=== PATIENT | male | born 1960 | race Caucasian/White ===

== ENCOUNTER 2017-04-04 11:01 | Emergency (ER) | payer BC, OTHER ==
[~2017-04-04] VITALS: Ht 185.4 cm; Wt 86.1 kg
[~2017-04-04 11:01] MED LIST: ASPI81TA28 PO; FEXO1TAB46 PO; FLUT0.0529 NAE; LISI20TA3 PO; METO50TA17 PO; PRLSR20 PO; PRVC/40 PO
[2017-04-04 11:06] VITALS: TEMP 37; Ht 185.4 cm; Wt 86.1 kg
[2017-04-04 11:50] LABS: BASO % 0.3 %; BASO ABS # 0.02 K/uL (0-0.2); COMPLETE YES; EOS % 2.3 %; HEMATOCRIT 43.5 % (42-52); IG% 0.3 %; LYMPH % 27.3 %; LYMPH ABS # 1.63 K/uL (1.2-3.4); MEAN CELL VOLUME 86.8 fL (80-100); MEAN CORPUSCULAR HEMOGLOBIN 30.3 pg (25-34); MEAN CORPUSCULAR HGB CONC 34.9 g/dl (32-36); MEAN PLATELET VOLUME 11.6 fL (7.4-10.4); MONO % 7.7 %; NEUT % 62.1 %; PLATELET COUNT 193 K/uL (130-400); RED BLOOD COUNT 5.01 M/uL (4.7-6.1); WHITE BLOOD COUNT 5.97 K/uL (4.8-10.8)
[2017-04-04 11:57] LABS: PROTHROMBIN TIME (PATIENT) 10.9 SECONDS (9.0-12.0)
[2017-04-04] MEDS ORDERED: CLBPO15 TOP (11:57)
[2017-04-04] MEDS ORDERED: METO50TA16 PO (11:57)
[2017-04-04] MEDS ORDERED: OMEP40CA41 PO (11:57)
[2017-04-04] MEDS ORDERED: SODIUM CHLORIDE 0.9% 1000ML 1,000 ML IV STA (12:02)
[2017-04-04] MEDS ORDERED: KETOROLAC TROMETHAMINE 30 MG/ML VIAL IV STA (12:02)
[2017-04-04 12:05] LABS: URINE APPEARANCE CLEAR (CLEAR); URINE BILIRUBIN NEG (NEG); URINE COLOR YELLOW; URINE EPITHELIAL CELL AUTO 0-5 /lpf (0-5); URINE NITRITE NEG (NEG); URINE SPECIFIC GRAVITY 1.017 (1.000-1.030); UROBILINOGEN NEG (NEG); ZZUR CULT IF INDIC CLEAN CATCH NO
[2017-04-04 12:06] LABS: MANUAL MICROSCOPIC REQUIRED? NO; REVIEW REQ? NO
[2017-04-04 12:07] LABS: BUN/CREATININE RATIO 11.1 (10-20); CREATININE 1.09 mg/dl (0.60-1.40); POTASSIUM 3.6 mmol/L (3.5-5.1)
--- NOTE | 2017-04-04 12:07 | EMERGENCY ROOM VISIT NOTE ---
History Report prepared by Gabriel: Raegan Black Under the Supervision of: Dr. Phil Borja M.D. First contact with patient: 11:48 Chief Complaint: HYPERTENSION Stated Complaint: HIGH BLOOD PRESSURE, BACK PAIN, DIGESTIVE TROUBLE History of Present Illness The patient is a 57 year old male who presents to the Emergency Room with complaints of persistent hypertension over the past two days. He currently rates his discomfort as a 5/10 in severity. The patient reports that he has a history of chronic back and abdominal pain. He states that he has a history of diverticulosis and chronic back pain. The patient states that he stopped by two urgent cares in [place] yesterday, noting that for the first one was for worsened chronic pain. He states that while there he was found to have a blood pressure of 190/95 mmHg. The patient states that at the second Urgent Care he was found to have a blood pressure of 210/110 mmHg. He states that last evening he was evaluated by a cardiac nurse and was found to have a blood pressure of 200/100 mmHg. The patient states that she instructed him to double his hypertension medications. He states that this morning he was found to have a blood pressure of 204/100 mmHg and decided to come to the emergency department for further evaluation and treatment. The patient states that over the past few days he has experienced burning with urination but denies any hematuria. He reports diarrhea. The patient reports chills, but denies any fever. He denies any nausea or vomiting. The patient additionally reports dizziness. Source of History: patient Onset: past two days Position: other (global) Symptom Intensity: 5/10 Quality: other (hypertension) Timing: other (persistent) Associated Symptoms: + chills, + diarrhea, + urinary symptoms, No fevers, No nausea, No vomiting Note: Associated symptoms: dizziness Review of Systems See HPI for pertinent positives and negatives. A total of ten systems were reviewed and were otherwise negative. Past Medical & Surgical Medical Problems: (1) Hypertension Family History FH: heart disease FATHER Social History Smoking Status: Never Smoker Drug Use: none Marital Status: Housing Status: lives with family Occupation Status: employed Current/Historical Medications Scheduled Aspirin (Aspirin Ec), 81 MG PO DAILY Clobetasol Propionate (Clobetasol Propionate), 1 APPLN TOP BID Lisinopril (Prinivil), 20 MG PO BID Metoprolol Tartrate (Lopressor) (Lopressor), 50 MG PO BID Omeprazole (Prilosec), 40 MG PO DAILY Allergies Coded Allergies: Dairy (Verified Allergy, Intermediate, lactose intolerant, 04/04/17) NUTS (Verified Adverse Reaction, Intermediate, GI SYMPTOMS, 04/04/17) patient states he cannot digest nuts and gets extreme abdominal pain Physical Exam Vital Signs Date Time Temp Pulse Resp B/P (MAP) Pulse Ox O2 Delivery O2 Flow Rate FiO2 04/04/17 15:46 62 20 162/101 97 Room Air 04/04/17 15:01 148/89 04/04/17 14:56 59 18 04/04/17 14:41 61 14 04/04/17 14:31 134/90 04/04/17 14:26 62 23 04/04/17 14:11 62 18 04/04/17 14:01 150/93 04/04/17 13:56 65 23 04/04/17 13:41 61 17 04/04/17 13:31 158/95 04/04/17 13:26 64 14 04/04/17 13:21 64 15 04/04/17 13:06 64 21 04/04/17 13:01 154/90 04/04/17 12:51 65 17 04/04/17 12:36 65 22 04/04/17 12:31 64 19 161/100 98 04/04/17 12:29 154/105 04/04/17 12:16 69 14 97 04/04/17 12:01 71 20 99 04/04/17 12:01 72 04/04/17 11:06 37.0 73 17 210/101 97 Room Air Physical Exam GENERAL: Awake, alert, fatigued but otherwise well-appearing, in no distress HENT: Normocephalic, atraumatic. Dry mucous membranes. EYES: Normal conjunctiva. Sclera non-icteric. NECK: Supple. No nuchal rigidity. FROM. No JVD. RESPIRATORY: Clear to auscultation. CARDIAC: Regular rate, normal rhythm. Extremities warm and well perfused. Pulses equal. ABDOMEN: Soft, non-distended. Mild generalized abdominal discomfort, but no discrete tenderness, no peritoneal signs. No rebound or guarding. No masses. RECTAL: Deferred. MUSCULOSKELETAL: Chest examination reveals no tenderness. The back is symmetrical on inspection without obvious abnormality. There is no CVA tenderness to palpation. No joint edema. Mild lumbar discomfort, but no discrete tenderness, LOWER EXTREMITIES: Calves are equal size bilaterally and non-tender. No edema. No discoloration. FROM without ttp. NEURO: Normal sensorium. No sensory or motor deficits noted. Distal motor sensory intact. SKIN: No rash or jaundice noted. Medical Decision & Procedures ER Provider Diagnostic Interpretation: X-ray: Per my interpretation, radiologist review. CHEST ONE VIEW PORTABLE CLINICAL HISTORY: sob dyspnea COMPARISON STUDY: 04/30/2013 FINDINGS: The bones soft tissues and hemidiaphragms are normal. The cardiomediastinal silhouette is normal. The lungs are clear. The pulmonary vasculature is normal. IMPRESSION: Negative chest. The above report was generated using voice recognition software. It may contain grammatical, syntax or spelling errors. Electronically signed by: Montrell Zhou M.D. 04/04/2017 12:33 PM Dictated Date/Time: 04/04/2017 12:33 PM Laboratory Results 04/04/17 11:20 Red Blood Count 5.01, Mean Corpuscular Volume 86.8, Mean Corpuscular Hemoglobin 30.3, Mean Corpuscular Hemoglobin Concent 34.9, Mean Platelet Volume 11.6, Neutrophils (%) (Auto) 62.1, Lymphocytes (%) (Auto) 27.3, Monocytes (%) (Auto) 7.7, Eosinophils (%) (Auto) 2.3, Basophils (%) (Auto) 0.3, Neutrophils # (Auto) 3.70, Lymphocytes # (Auto) 1.63, Monocytes # (Auto) 0.46, Eosinophils # (Auto) 0.14, Basophils # (Auto) 0.02 04/04/17 11:20 Test 04/04/17 11:20 04/04/17 11:40 04/04/17 12:02 White Blood Count 5.97 K/uL (4.8-10.8) Red Blood Count 5.01 M/uL (4.7-6.1) Hemoglobin 15.2 g/dL (14.0-18.0) Hematocrit 43.5 % (42-52) Mean Corpuscular Volume 86.8 fL (80-100) Mean Corpuscular Hemoglobin 30.3 pg (25-34) Mean Corpuscular Hemoglobin Concent 34.9 g/dl (32-36) Platelet Count 193 K/uL (130-400) Mean Platelet Volume 11.6 fL (7.4-10.4) Neutrophils (%) (Auto) 62.1 % Lymphocytes (%) (Auto) 27.3 % Monocytes (%) (Auto) 7.7 % Eosinophils (%) (Auto) 2.3 % Basophils (%) (Auto) 0.3 % Neutrophils # (Auto) 3.70 K/uL (1.4-6.5) Lymphocytes # (Auto) 1.63 K/uL (1.2-3.4) Monocytes # (Auto) 0.46 K/uL (0.11-0.59) Eosinophils # (Auto) 0.14 K/uL (0-0.5) Basophils # (Auto) 0.02 K/uL (0-0.2) RDW Standard Deviation 41.7 fL (36.4-46.3) RDW Coefficient of Variation 13.0 % (11.5-14.5) Immature Granulocyte % (Auto) 0.3 % Immature Granulocyte # (Auto) 0.02 K/uL (0.00-0.02) Erythrocyte Sedimentation Rate 11 mm/hr (0-14) Prothrombin Time 10.9 SECONDS (9.0-12.0) Prothromb Time International Ratio 1.0 (0.9-1.1) Activated Partial Thromboplast Time 26.6 SECONDS (21.0-31.0) Partial Thromboplastin Ratio 1.0 Anion Gap 5.0 mmol/L (3-11) Est Creatinine Clear Calc Drug Dose 85.5 ml/min Estimated GFR () 87.5 Estimated GFR (Non- 75.5 BUN/Creatinine Ratio 11.1 (10-20) Calcium Level 9.0 mg/dl (8.5-10.1) Total Bilirubin 1.3 mg/dl (0.2-1) Aspartate Amino Transf (AST/SGOT) 18 U/L (15-37) Alanine Aminotransferase (ALT/SGPT) 28 U/L (12-78) Alkaline Phosphatase 66 U/L (45-117) Total Protein 7.9 gm/dl (6.4-8.2) Albumin 4.2 gm/dl (3.4-5.0) Globulin 3.6 gm/dl (2.5-4.0) Albumin/Globulin Ratio 1.2 (0.9-2) Urine Color YELLOW Urine Appearance CLEAR (CLEAR) Urine pH 6.0 (4.5-7.5) Urine Specific University 1.017 (1.000-1.030) Urine Protein NEG (NEG) Urine Glucose (UA) NEG (NEG) Urine Ketones NEG (NEG) Urine Occult Blood NEG (NEG) Urine Nitrite NEG (NEG) Urine Bilirubin NEG (NEG) Urine Urobilinogen NEG (NEG) Urine Leukocyte Esterase NEG (NEG) Urine WBC (Auto) 1-5 /hpf (0-5) Urine RBC (Auto) 0-4 /hpf (0-4) Urine Hyaline Casts (Auto) 0 /lpf (0-5) Urine Epithelial Cells (Auto) 0-5 /lpf (0-5) Urine Bacteria (Auto) NEG (NEG) Phosphorus Level 2.4 mg/dl (2.5-4.9) Magnesium Level 2.1 mg/dl (1.8-2.4) Total Creatine Kinase 204 U/L (39-308) Troponin I < 0.015 ng/ml (0-0.045) C-Reactive Protein < 0.29 mg/dl (0-0.29) Laboratory results reviewed by me Medications Administered Medications (Trade) Dose Ordered Sig/Komal Route Start Time Stop Time Status Last Admin Dose Admin Sodium Chloride 1,000 ml @ 999 mls/hr Q1H1M STAT IV 04/04/17 12:02 04/04/17 13:02 DC 04/04/17 12:30 999 MLS/HR Ketorolac Tromethamine (Toradol Inj) 30 mg NOW STAT IV 04/04/17 12:02 04/04/17 12:11 DC 04/04/17 12:31 30 MG ECG Indication: other (hypertension) Rate (beats per minute): 69 Rhythm: normal sinus Findings: no acute ischemic change, other (normal axis) ED Course 1158: The patient was evaluated in room A9B. A complete history and physical exam was performed. 1202: Ordered Toradol Inj 30 mg IV, Sodium Chloride 1000 ml @ 999 mls/hr IV. Medical Decision I reviewed the patient's past medical history, medications, and the nursing notes as described above. The patient's presentation and history were concerning for Dehydration, electrolyte abnormality, pneumonia, bronchitis, UTI, prostatitis, diverticulitis , ACS. The patient is a 57 y/o gentleman with a pmhx of HTN and chronic back, abdominal , and hip pain who presents to the emergency department with flare of his chronic pain with associated hypertension per HPI. On arrival the patient is relatively well-appearing, in NAD, hypertensive to sbp 200s/100s but otherwise VSS. Appears clinically dry on exam. Mild lumbar and generalized abdominal discomfort but no discrete ttp. Labs unremarkable including wbc and trop wnl. EKG unremarkable. CXR negative. Patient feeling improved after IVF and toradol and BP improved to SBP 140s. Elevated BP likely multifactorial including mild dehydration and patient's chronic pain. Given reassuring w/u no indication for emergent w/u at this time. Findings and plan for follow-up reviewed with patient. Patient agreeable and d/c'd per discharge instructions. Medication Reconcilliation Current Medication List: was personally reviewed by me Impression Primary Impression: Back pain Additional Impressions: Abdominal pain Hip pain, bilateral Scribe Attestation The scribe's documentation has been prepared under my direction and personally reviewed by me in its entirety. I confirm that the note above accurately reflects all work, treatment, procedures, and medical decision making performed by me. Departure Information Dispostion Home / Self-Care Referrals Meryl Jefferson M.D. (PCP) Patient Instructions Abdominal Pain - [facility], ED Neck Back Pain General, My [facility], Replacement Hip Manage Pain Additional Instructions Please follow up with your primary care physician in the next week for re- evaluation and to discuss management of your blood pressure. Otherwise, your exam, EKG, chest xray, and lab results did not show signs of an emergent condition at this time. Return to the emergency department for worsening symptoms as described in the accompanying instructions. Problem Qualifiers
[2017-04-04 12:09] LABS: ALB/GLOB RATIO 1.2 (0.9-2)
--- NOTE | 2017-04-04 12:34 | DIAGNOSTIC IMAGING REPORT ---
CHEST ONE VIEW PORTABLE CLINICAL HISTORY: sob dyspnea COMPARISON STUDY: 04/30/2013 FINDINGS: The bones soft tissues and hemidiaphragms are normal. The cardiomediastinal silhouette is normal. The lungs are clear. The pulmonary vasculature is normal. IMPRESSION: Negative chest. The above report was generated using voice recognition software. It may contain grammatical, syntax or spelling errors. Electronically signed by: Montrell Zhou M.D. 04/04/2017 12:33 PM Dictated Date/Time: 04/04/2017 12:33 PM
[2017-04-04 13:32] LABS: C-REACTIVE PROTEIN < 0.29 mg/dl (0-0.29); MAGNESIUM 2.1 mg/dl (1.8-2.4); PHOSPHORUS 2.4 mg/dl (2.5-4.9)
[2017-04-04 15:46] VITALS: BP 162/101; PULSE 62; O2SAT 97
[2017-04-16] MEDS ORDERED: BLOOD PRESSURE MED PO (15:30)
[2017-04-16] MEDS ORDERED: MULT-506 PO (15:31)
[2017-04-18] MEDS ORDERED: AMLO-110 PO (10:54)
== END 2017-04-04 15:56 | disposition home or self-care (01) ==
LOC: C.EDB 11:03 → C.EDA 15:56
DX: M54.9 Dorsalgia, unspecified (principal); R10.9 Unspecified abdominal pain; M25.551 Pain in right hip; M25.552 Pain in left hip; Z79.82 Long term (current) use of aspirin; I10 Essential (primary) hypertension; Z82.49 Family history of ischemic heart disease and other diseases of the circulatory system

== ENCOUNTER → 2017-04-18 | Day surgery (SDC) | payer OTHER ==
[2017-04-16 15:31] VITALS: Ht 185.4 cm; Wt 95.9 kg
[~2017-04-18] VITALS: Ht 185.4 cm; Wt 95.9 kg
[~2017-04-18] MED LIST changes: +AMLO-110 PO; +BLOOD PRESSURE MED PO; +CLBPO15 TOP; -FEXO1TAB46 PO; -FLUT0.0529 NAE; +LIDOCAINE HCL 2% 2 ML VIAL (20MG/ML) ONE; +METO50TA16 PO; -METO50TA17 PO; +MULT-506 PO; +OMEP40CA41 PO; -PRLSR20 PO; +PROPOFOL IV EMULSION 10 MG/ML 20 ML VIAL IV ONE; -PRVC/40 PO; +SODIUM CHLORIDE 0.9% 500ML 500 ML IV ONE
[2017-04-18 11:00] VITALS: TEMP 36.6
--- NOTE | 2017-04-18 11:04 | Endo History and Physical ---
History & Physical Date of Service: Apr 18, 2017. Chief Complaint: Family history Colon Cancer, Personal history of polyps Referring Physician: Meryl Jefferson History of Present Illness 57 yo presenting for colonoscopy for evaluation of colon polyp history as well as family history of colon ca Past Medical History Hypertension, Other Past Surgical History Hx Cardiac Surgery: Yes (HEART CATH, NO STENTS) Hx Internal Defibrillator: No Hx Pacemaker: No Hx Abdominal Surgery: Yes (R[facility]INSON) Hx of Implantable Prosthesis: No Hx Post-Op Nausea and Vomiting: No Hx Cancer Surgery: No Hx Thoracic Surgery: No Hx Orthopedic: Yes (LT/RT ELIO) Hx Urinary Tract Surgery: Yes (KIDNEY STONE REMOVAL, TURP) Family History Colon CA Social History Smoking Status: Never Smoker Hx Substance Use: No Hx Alcohol Use: No Allergies Coded Allergies: Dairy (Verified Allergy, Intermediate, lactose intolerant, 04/18/17) NO KNOWN DRUG ALLERGIES (Verified Allergy, Unknown, ., 04/18/17) NUTS (Verified Adverse Reaction, Intermediate, GI SYMPTOMS, 04/18/17) patient states he cannot digest nuts and gets extreme abdominal pain Current Medications Reported Home Medications Medications Dose Route/Sig Max Daily Dose Days Date Category Norvasc (Amlodipine Besylate) 5 Mg Tab 5 Mg PO DAILY 04/18/17 Reported Multivitamin (Multivitamins) Tab 1 Tab PO DAILY 04/16/17 Reported Lopressor (Metoprolol Tartrate) 50 Mg Tab 50 Mg PO BID 04/04/17 Reported Clobetasol Propionate 45 Appln/15 Gm Oint 1 Appln TOP BID PRN 04/04/17 Reported Prilosec (Omeprazole) 40 Mg Cap 40 Mg PO QAM 04/04/17 Reported Aspirin Ec (Aspirin) 81 Mg Tab 81 Mg PO QAM 07/28/13 Reported Prinivil (Lisinopril) 20 Mg Tab 20 Mg PO BID 04/30/13 Reported Vital Signs Weight (Kilograms): 95.91 Height (Feet): 6 Height (Inches): 1 Physical Exam General Appearance: WD/WN, no apparent distress Respiratory/Chest: Respiratory effort: no dyspnea Auscultation: breath sounds normal, CTA except as noted, no wheezing Cardiovascular: Apical Impulse: not displaced Heart Auscultation: RRR, normal S1, normal S2 Abdomen: Bowel Sounds: normal Inspection & Palpation: soft, no tenderness, guarding & rebound Assessment and Plan 57 yo presenting for colonoscopy for evaluation of history of colon polyps and family hx of colon ca
--- NOTE | 2017-04-18 12:03 | GI REPORT ---
Procedure Date: 04/18/2017 11:04 AM Procedure: Colonoscopy Indications: High risk colon cancer surveillance: Personal history of colonic polyps Medicines: General Anesthesia Complications: No immediate complications. Estimated blood loss: None. Estimated Blood Loss: Estimated blood loss: none. Procedure: Pre-Anesthesia Assessment: - Pre-Anesthesia Assessment: - Prior to the procedure, a History and Physical was performed, and patient medications, allergies and sensitivities were reviewed. The patient's tolerance of previous anesthesia was reviewed. Please see [employer] for complete details. - The risks and benefits of the procedure and the sedation options and risks were discussed with the patient. All questions were answered and informed consent was obtained. - Patient identification and proposed procedure were verified prior to the procedure by the physician and the nurse. The procedure was verified in the pre-procedure area in the procedure room. After obtaining informed consent, the endoscope was passed carefully and meticuously under direct vision and only advanced when the lumen was clearly identified, C02 insuflation was utilized throughout the entirity of the procedure. Throughout the procedure, the patient's blood pressure, pulse, and oxygen saturations were monitored continuously. After I obtained informed consent, the scope was passed under direct vision. Throughout the procedure, the patient's blood pressure, pulse, and oxygen saturations were monitored continuously. The Scope was introduced through the anus and advanced to the cecum, identified by appendiceal orifice and ileocecal valve. The colonoscopy was performed without difficulty. The patient tolerated the procedure well. The quality of the bowel preparation was good. Findings: A 4 mm polyp was found in the transverse colon. The polyp was sessile. The polyp was removed with a jumbo cold forceps. Resection and retrieval were complete. The terminal ileum appeared normal. Multiple small-mouthed diverticula were found in the sigmoid colon. Internal hemorrhoids were found during retroflexion. The exam was otherwise without abnormality on direct and retroflexion views. Impression: - One 4 mm polyp in the transverse colon, removed with a jumbo cold forceps. Resected and retrieved. - The examined portion of the ileum was normal. - Diverticulosis in the sigmoid colon. - Internal hemorrhoids. - The examination was otherwise normal on direct and retroflexion views. Recommendation: - Discharge patient to home (with escort). - Repeat colonoscopy in 5 years for surveillance based on pathology results. - Return to referring physician as previously scheduled. Phuc Morgan MD 04/18/2017 12:02:59 PM This report has been signed electronically. Note Initiated On: 04/18/2017 11:04 AM I attest to the content of the Intraoperative Record and orders documented therein, exceptions below
--- NOTE | 2017-04-18 12:18 | Discharge Instructions ---
Endoscopy Patient Instructions Date / Procedure(s) Performed Apr 18, 2017. Colonoscopy Allergy Information Coded Allergies: Dairy (Verified Allergy, Intermediate, lactose intolerant, 04/18/17) NO KNOWN DRUG ALLERGIES (Verified Allergy, Unknown, ., 04/18/17) NUTS (Verified Adverse Reaction, Intermediate, GI SYMPTOMS, 04/18/17) patient states he cannot digest nuts and gets extreme abdominal pain Discharge Date / Findings Apr 18, 2017. Findings: A 4 mm polyp was found in the transverse colon. The polyp was sessile. The polyp was removed with a jumbo cold forceps. Resection and retrieval were complete. The terminal ileum appeared normal. Multiple small-mouthed diverticula were found in the sigmoid colon. Internal hemorrhoids were found during retroflexion. The exam was otherwise without abnormality on direct and retroflexion views. Recommendation: - Discharge patient to home (with escort). - Repeat colonoscopy in 5 years for surveillance based on pathology results. - Return to referring physician. Medication Instructions Stopped Medication(s): Aspirin stopped 04/11/17 Provider Instructions Activity Restrictions - No exercising or heavy lifting for 24 hours. - Do not drink alcohol the day of the procedure. - Do not drive a car or operate machinery until the day after the procedure. - Do not make any important decisions or sign important papers in 24 hours after the procedure. Following Day: - Return to full activity which may include returning to work/school. Diet Start your diet with liquids and light foods (jello, soup, juice, toast). Then eat your usual diet if not nauseated. Treatment For Common After Affects For mild abdominal pain, bloating, or excessive gas: - Rest - Eat lightly - Lie on right side Follow-Up Information Follow-up with Meryl Jefferson as scheduled Anesthesia Information What You Should Know You have had a procedure that required some medicine to reduce anxiety and discomfort. This treatment is called moderate sedation. After receiving the treatment, you may be sleepy, but you will be able to breathe on your own. The effects of the treatment may last for several hours. Follow these instructions along with Activity/Diet recommendations noted above: * Do NOT do anything where dizziness or clumsiness would be dangerous. * Rest quietly at home today, then you can be up and about tomorrow. * Have a responsible person stay with you the rest of today. * You may have had an I.V. today. If so, you may take the dressing off later today. Recommendations Call your doctor if: * Trouble breathing * Continuous vomiting for more than 24 hours * Temperature above 101 degrees * Severe abdominal pain or bloating * Pain not relieved by pain medicine ordered * There is increased drainage or redness from any incision * A large amount of rectal bleeding greater than 2-3 tablespoons. (If you had a polyp/s removed or have hemorrhoids, a small amount of blood - from the rectum is to be expected.) * You have any unanswered questions or concerns. IN THE EVENT OF A SERIOUS EMERGENCY, GO TO THE NEAREST EMERGENCY ROOM Your discharge instructions were prepared by provider Phuc Morgan. Patient Instructions Signature Page Timoteo Dinh Patient (or Guardian) Signature/Date: I have read and understand the instructions given to me by my caregivers. Caregiver/RN/Doctor Signature/Date: The above-named patient and/or guardian has received patient instructions on this date. + Original Patient Signature Page (only) stays with chart. Please make copy for patient.
--- NOTE | 2017-04-18 12:22 | Anesthesiology Progress Note ---
Anesthesia Post Op Note Date & Time Apr 18, 2017 at 12:22 Vital Signs Pain Intensity: 0 Vital Signs Past 12 Hours Date Time Temp Pulse Resp B/P (MAP) Pulse Ox O2 Delivery O2 Flow Rate FiO2 04/18/17 12:01 64 16 106/59 (75) 96 Room Air 04/18/17 11:00 36.6 69 16 159/100 (119) 98 Room Air Notes Mental Status: alert / awake / arousable, participated in evaluation Pt Amnestic to Procedure: Yes Nausea / Vomiting: adequately controlled Pain: adequately controlled Airway Patency, RR, SpO2: stable & adequate BP & HR: stable & adequate Hydration State: stable & adequate Anesthetic Complications: no major complications apparent
[2017-04-18 12:31] VITALS: BP 146/85; PULSE 66; O2SAT 99
== END | disposition home or self-care (01) ==
LOC: C.GI 10:24
PROVIDERS: ATTEND Internal Medicine
DX: Z12.11 Encounter for screening for malignant neoplasm of colon (principal); D12.3 Benign neoplasm of transverse colon; K57.30 Diverticulosis of large intestine without perforation or abscess without bleeding; K64.8 Other hemorrhoids; Z86.010 Personal history of colon polyps; Z80.0 Family history of malignant neoplasm of digestive organs; I10 Essential (primary) hypertension; Z79.82 Long term (current) use of aspirin; Z79.899 Other long term (current) drug therapy

== ENCOUNTER → 2017-09-04 | Outpatient (CLI) | payer OTHER ==
[~2017-09-04] MED LIST changes: -BLOOD PRESSURE MED PO; -LIDOCAINE HCL 2% 2 ML VIAL (20MG/ML) ONE; -PROPOFOL IV EMULSION 10 MG/ML 20 ML VIAL IV ONE; -SODIUM CHLORIDE 0.9% 500ML 500 ML IV ONE
[2017-09-04 13:37] LABS: ALBUMIN 4.1 gm/dl (3.4-5.0); ALT/SGPT 60 U/L (12-78); BLOOD UREA NITROGEN 15 mg/dl (7-18); CALCIUM 9.3 mg/dl (8.5-10.1); CARBON DIOXIDE 27 mmol/L (21-32); CHOLESTEROL 147 mg/dl (0-200); CREATININE 1.18 mg/dl (0.60-1.40); GLUCOSE 117 mg/dl (70-99); POTASSIUM 4.2 mmol/L (3.5-5.1); SODIUM 137 mmol/L (136-145)
[2017-09-04 13:40] LABS: ALKALINE PHOSPHATASE 77 U/L (45-117); AST/SGOT 36 U/L (15-37); LDL CHOLESTEROL CALCULATED 93 mg/dl; TOTAL PROTEIN 7.7 gm/dl (6.4-8.2)
== END | disposition home or self-care (01) ==
LOC: C.LABPVFM 07:53
PROVIDERS: ATTEND Internal Medicine
DX: E78.5 Hyperlipidemia, unspecified (principal)

== ENCOUNTER 2020-05-06 20:49 | Observation (INO) ==
[2020-05-06] MEDS ORDERED: NITROGLYCERIN 2% OINTMENT 30GM TUBE EXT STA (21:22)
[2020-05-06 21:52] LABS: Basophils # (auto) 0.01 K/uL (0-0.2); Basophils % (auto) 0.1 %; Eosinophils # (auto) 0.01 K/uL (0-0.5); Eosinophils % (auto) 0.1 %; Hematocrit (blood only) 39.9 % (42-52); Hemoglobin 13.3 g/dL (14.0-18.0); Immature Granulocytes # (auto) 0.18 K/uL (0.00-0.02); Immature Granulocytes % (auto) 1.5 %; Lymphocytes # (auto) 1.22 K/uL (1.2-3.4); Lymphocytes % (auto) 10.4 %; Mean Corpuscular Hemoglobin 29.1 pg (25-34); Mean Corpuscular Hgb Conc 33.3 g/dL (32-36); Mean Corpuscular Volume 87.3 fL (80-100); Mean Platelet Volume 10.9 fL (7.4-10.4); Monocytes # (auto) 0.92 K/uL (0.11-0.59); Monocytes % (auto) 7.9 %; Neutrophils # (auto) 9.36 K/uL (1.4-6.5); Platelet Count 225 K/uL (130-400); RDW Coefficient of Variation 12.9 % (11.5-14.5); RDW Standard Deviation 41.4 fL (36.4-46.3); Red Blood Count 4.57 M/uL (4.7-6.1)
[2020-05-06 22:02] LABS: Partial Thromboplastin Ratio 0.9; Partial Thromboplastin Time 25.8 Seconds (21.0-31.0); Prothrombin Time 10.8 Seconds (9.0-12.0)
[2020-05-06 22:08] LABS: Alanine Aminotransferase 27 U/L (12-78); Albumin Level 3.5 gm/dl (3.4-5.0); Aspartate Aminotransferase 21 U/L (15-37); BUN Creatinine Ratio 14.6 (10-20); Blood Urea Nitrogen 20 mg/dl (7-18); Calcium 8.8 mg/dl (8.5-10.1); Carbon Dioxide 25 mmol/L (21-32); Chloride 110 mmol/L (98-107); Creatinine Clr Calc Pharmacy 69.9 ml/min; Est GFR (African American) 65.5; Est GFR (Non-African American) 56.6; Glucose 150 mg/dl (70-99); Potassium 3.8 mmol/L (3.5-5.1); Sodium 142 mmol/L (136-145)
[2020-05-06 22:13] LABS: Albumin Globulin Ratio 0.9 (0.9-2); Alkaline Phosphatase 102 U/L (45-117); Bilirubin,Total 0.7 mg/dl (0.2-1); Globulin 3.7 gm/dl (2.5-4.0); NT Pro B Type Natriuretic Pept 94 pg/ml (0-900); Total Protein 7.2 gm/dl (6.4-8.2); Troponin I < 0.015 ng/ml (0-0.045)
--- NOTE | 2020-05-06 22:16 | XRay Report ---
SINGLE VIEW CHEST CLINICAL HISTORY: Dyspnea. FINDINGS: An AP, portable, upright chest radiograph is compared to study dated 05/03/2020. The cardio mediastinal silhouette is unremarkable. The lungs and pleural spaces are clear. No pneumothorax is se en. The bony thorax is grossly intact. IMPRESSION: No active disease in the chest. ACT 112: Negative or not required by law. Electronically signed by: Tahir Montalvo M.D. 05/06/2020 10:15 PM
[2020-05-06 22:21] LABS: D Dimer 200 ug/L FEU (0-500)
--- NOTE | 2020-05-07 03:07 | Emergency Department Note ---
History of Present Illness General Chief complaint: Shortness of Breath/Dyspnea Stated complaint: SOB Time Seen by Provider: 05/06/20 21:22 Source: patient and RN notes reviewed Mode of arrival: ambulatory Limitations: no limitations History of Present Illness Provider complaint: Shortness of breath, sensation of drowning, high blood pressure Maximum Pain Intensity: 8 This patient is a 60-year-old male who presents to the emergency department with complaints of shortness of breath, a sensation of drowning and elevated blood pressures. He states the symptoms have been present for 9 to 10 days. He denies any clear fever. He has had 2 Covid swabs prior to today's visit. 1 was 3 days ago and a second was follow-up through his primary care provider that is still pending. The patient lives at home with his who is not ill. He states he has had significant shortness of breath with exertion. He is waking up at night suddenly times the last 2 nights gasping for air. He denies any significant chest pain, abdominal pain, vomiting or diarrhea. He has been seen by his primary care provider was placed on steroids and an inhaler. He did have a negative chest x-ray several days ago. The patient denies any history of congestive heart failure. He states he has been compliant with his 3 high blood pressure medications. Home Medications Medication Instructions Recorded Confirmed Type albuterol sulfate 2 puff INHALATION Q4H PRN 05/03/20 05/07/20 History amlodipine 5 mg PO QAM 05/03/20 05/07/20 History aspirin [Aspir-81] 81 mg PO QAM 05/03/20 05/07/20 History atorvastatin 40 mg PO QAM 05/03/20 05/07/20 History lisinopril 20 mg PO BID 05/03/20 05/07/20 History metoprolol tartrate 12.5 mg PO BID 05/03/20 05/07/20 History metoprolol tartrate 50 mg PO BID 05/03/20 05/07/20 History multivitamin 1 tab PO QAM 05/03/20 05/07/20 History omeprazole 40 mg PO QAM 05/03/20 05/07/20 History Allergies Allergy/AdvReac Type Severity Reaction Status Date / Time milk Allergy Intermediate lactose Verified 05/07/20 00:12 intolerant No Known Drug Allergies Allergy Unknown . Verified 05/07/20 00:12 nut - unspecified AdvReac Intermediate GI SYMPTOMS Verified 05/07/20 00:12 Past Med/Surg History Medical History Hypertension Renal colic on right side Surgical History No significant past surgical history Social History (Updated 05/07/20 @ 03:11 by Candice Morse MD) Smoking Status: Never smoker Hx Alcohol Use: No Hx Substance Use: No Preferred Language: Maltese Communication Ability: Effective Auto Painter Required: No Beliefs That Will Affect Care: None marital status: Current Living Situation: Spouse current occupational status: employed Feels Safe at Home: Yes Safety Concerns: Feels Safe At This Time Assistive Devices: Glasses Review of Systems See HPI for pertinent positives & negatives. and A total of 10 systems reviewed and were otherwise negative Physical Exam Vital Signs Vital Signs - 24 hr 05/06/20 20:54 05/06/20 21:31 05/06/20 21:32 Temperature 36.4 C L Temperature Source Temporal Artery Scan Pulse Rate 91 H 91 H Pulse Rate [Apical] Pulse Rate from SpO2 Sensor Respiratory Rate 24 18 Blood Pressure 191/98 H 178/95 H Blood Pressure [Left Arm] Blood Pressure Mean 129 107 Blood Pressure Mean [Left Arm] Blood Pressure Position Sitting Pulse Oximetry 96 97 Oxygen Delivery Method Room Air Room Air Sepsis Recent Fever Within 48 Hours No Sepsis New/Unexplained Change in Mental Status No Sepsis Action Taken by Nursing No Action Required 05/06/20 21:34 05/06/20 22:00 05/06/20 22:01 Temperature Temperature Source Pulse Rate 78 78 76 Pulse Rate [Apical] Pulse Rate from SpO2 Sensor 79 77 73 Respiratory Rate 15 16 28 H Blood Pressure 167/87 H Blood Pressure [Left Arm] Blood Pressure Mean 114 Blood Pressure Mean [Left Arm] Blood Pressure Position Pulse Oximetry 96 94 94 Oxygen Delivery Method Sepsis Recent Fever Within 48 Hours Sepsis New/Unexplained Change in Mental Status Sepsis Action Taken by Nursing 05/06/20 22:30 05/06/20 22:31 05/06/20 22:46 Temperature Temperature Source Pulse Rate 71 66 Pulse Rate [Apical] 76 Pulse Rate from SpO2 Sensor 74 65 Respiratory Rate 23 22 18 Blood Pressure 146/79 H Blood Pressure [Left Arm] 146/79 H Blood Pressure Mean 94 Blood Pressure Mean [Left Arm] 101 Blood Pressure Position Pulse Oximetry 94 95 96 Oxygen Delivery Method Room Air Sepsis Recent Fever Within 48 Hours Sepsis New/Unexplained Change in Mental Status Sepsis Action Taken by Nursing 05/06/20 23:00 05/06/20 23:01 05/06/20 23:30 Temperature Temperature Source Pulse Rate 70 60 72 Pulse Rate [Apical] Pulse Rate from SpO2 Sensor 65 60 72 Respiratory Rate 16 20 26 H Blood Pressure 142/77 H 134/78 Blood Pressure [Left Arm] Blood Pressure Mean 99 87 Blood Pressure Mean [Left Arm] Blood Pressure Position Pulse Oximetry 95 94 94 Oxygen Delivery Method Sepsis Recent Fever Within 48 Hours Sepsis New/Unexplained Change in Mental Status Sepsis Action Taken by Nursing 05/06/20 23:31 05/07/20 00:00 05/07/20 00:01 Temperature Temperature Source Pulse Rate 65 65 78 Pulse Rate [Apical] Pulse Rate from SpO2 Sensor 63 58 L 72 Respiratory Rate 18 24 17 Blood Pressure 140/94 Blood Pressure [Left Arm] Blood Pressure Mean 112 Blood Pressure Mean [Left Arm] Blood Pressure Position Pulse Oximetry 96 94 93 Oxygen Delivery Method Sepsis Recent Fever Within 48 Hours Sepsis New/Unexplained Change in Mental Status Sepsis Action Taken by Nursing 05/07/20 00:30 05/07/20 00:31 05/07/20 01:00 Temperature Temperature Source Pulse Rate 67 62 61 Pulse Rate [Apical] Pulse Rate from SpO2 Sensor 63 62 59 L Respiratory Rate 16 15 18 Blood Pressure 154/90 H 124/60 Blood Pressure [Left Arm] Blood Pressure Mean 102 77 Blood Pressure Mean [Left Arm] Blood Pressure Position Pulse Oximetry 96 95 95 Oxygen Delivery Method Sepsis Recent Fever Within 48 Hours Sepsis New/Unexplained Change in Mental Status Sepsis Action Taken by Nursing 05/07/20 01:01 05/07/20 01:30 05/07/20 01:31 Temperature Temperature Source Pulse Rate 74 60 54 L Pulse Rate [Apical] Pulse Rate from SpO2 Sensor 68 52 L 54 L Respiratory Rate 17 17 18 Blood Pressure 116/57 L Blood Pressure [Left Arm] Blood Pressure Mean 68 Blood Pressure Mean [Left Arm] Blood Pressure Position Pulse Oximetry 94 94 95 Oxygen Delivery Method Sepsis Recent Fever Within 48 Hours Sepsis New/Unexplained Change in Mental Status Sepsis Action Taken by Nursing 05/07/20 02:00 05/07/20 02:01 05/07/20 03:00 Temperature Temperature Source Pulse Rate 68 65 Pulse Rate [Apical] 53 L Pulse Rate from SpO2 Sensor 67 62 Respiratory Rate 24 24 17 Blood Pressure 135/81 Blood Pressure [Left Arm] 121/61 Blood Pressure Mean 91 Blood Pressure Mean [Left Arm] 81 Blood Pressure Position Pulse Oximetry 95 95 96 Oxygen Delivery Method Room Air Room Air Sepsis Recent Fever Within 48 Hours Sepsis New/Unexplained Change in Mental Status Sepsis Action Taken by Nursing Vital signs reviewed. General: Well-appearing 60-year-old male, in no significant distress. HEENT: No scleral icterus, PERRLA, neck supple. Atraumatic. Cardiovascular: Regular rate and rhythm, no extra sounds. Pulmonary: Clear to auscultation bilaterally, normal work of breathing. Abdomen: Soft, nontender, nondistended, positive bowel sounds. Musculoskeletal: Atraumatic, no peripheral edema. Neurologic: Patient awake alert and oriented x 3 Skin: Warm, dry, no rash Course Administered Medications Acetaminophen (Acetaminophen 325 Mg Tab) 650 mg PO Q4H PRN PRN Reason: pain/fever Stop: 06/06/20 03:21 Last Admin: 05/07/20 03:54 Dose: 650 mg Documented by: [id number] Albuterol (Albuterol Hfa 8 Gm Inhaler) 2 puffs INH Q4H PRN PRN Reason: Shortness Of Breath Stop: 06/06/20 03:21 Last Admin: 05/07/20 07:52 Dose: 2 puffs Documented by: [id number] Amlodipine Besylate (Amlodipine Besylate 5 Mg Tab) 5 mg PO [facility] Stop: 06/06/20 08:59 Last Admin: 05/07/20 08:18 Dose: 5 mg Documented by: [id number] Aspirin (Aspirin 81 Mg Ectab) 81 mg PO [facility] Stop: 06/06/20 08:59 Last Admin: 05/07/20 08:18 Dose: 81 mg Documented by: [id number] Atorvastatin Calcium (Atorvastatin 40 Mg Tab) 40 mg PO [facility] Stop: 06/06/20 08:59 Last Admin: 05/07/20 08:18 Dose: 40 mg Documented by: [id number] Guaifenesin (Guaifenesin Sugar Free 200 Mg/10 Ml Udc) 200 mg PO Q6H PRN PRN Reason: Cough Stop: 06/06/20 12:20 Last Admin: 05/07/20 23:44 Dose: 200 mg Documented by: [id number] Admin: 05/07/20 17:15 Dose: 200 mg Documented by: [id number] Ketorolac Tromethamine (Ketorolac Tromethamine 15 Mg/Ml Vial) 15 mg IV Q6H PRN PRN Reason: Pain Stop: 05/12/20 19:57 Last Admin: 05/07/20 20:07 Dose: 15 mg Documented by: [id number] Levalbuterol HCl (Levalbuterol 1.25mg/0.5ml Neb) 1.25 mg NEB Q4H PRN PRN Reason: Shortness Of Breath Or Wheezing Stop: 06/06/20 03:21 Last Admin: 05/07/20 17:28 Dose: 1.25 mg Documented by: [id number] Admin: 05/07/20 04:34 Dose: 1.25 mg Documented by: [id number] Lisinopril (Lisinopril 20 Mg Tab) 20 mg PO BID [facility] Stop: 06/06/20 08:59 Last Admin: 05/07/20 20:42 Dose: 20 mg Documented by: [id number] Admin: 05/07/20 08:18 Dose: 20 mg Documented by: [id number] Metoprolol Tartrate (Metoprolol Tartrate 50 Mg Tab) 50 mg PO BID [facility] Stop: 06/06/20 08:59 Last Admin: 05/07/20 20:41 Dose: 50 mg Documented by: [id number] Admin: 05/07/20 08:18 Dose: 50 mg Documented by: [id number] Metoprolol Tartrate (Metoprolol Tartrate 25 Mg Tab) 12.5 mg PO BID [facility] Stop: 06/06/20 08:59 Last Admin: 05/07/20 20:42 Dose: 12.5 mg Documented by: [id number] Admin: 05/07/20 08:18 Dose: 12.5 mg Documented by: [id number] Multivitamins (Multivitamin Tab) 1 tab PO QAM [facility] Stop: 06/06/20 08:59 Last Admin: 05/07/20 08:18 Dose: 1 tab Documented by: [id number] Pantoprazole Sodium (Pantoprazole 40 Mg Tab) 40 mg PO QAM [facility] Stop: 06/06/20 08:59 Last Admin: 05/07/20 08:18 Dose: 40 mg Documented by: [id number] Discontinued Medications Nitroglycerin (Nitroglycerin 2% Ointment 30gm Tube) 1 inch EXT NOW STA Stop: 05/06/20 21:23 Last Admin: 05/06/20 21:33 Dose: 1 inch Documented by: [id number] Potassium Chloride (Potassium Chloride Pwd 20 Meq Pack) 20 meq PO ONCE ONE Stop: 05/07/20 18:31 Last Admin: 05/07/20 19:48 Dose: 20 meq Documented by: [id number] Medical Decision Making Differential Diagnosis Reactive airway disease, Covid, pneumonia, pneumothorax, COPD, CHF, infections, cardiac ischemia, pulmonary embolism, musculoskeletal, gastrointestinal, as well as other pathologies. Medical Records Attestation: I reviewed the patient's medical records. Home Medications Current Medication List: was personally reviewed by me Laboratory Data Attestation: I reviewed the patient's lab results. Result diagrams: 05/07/20 07:09 05/07/20 07:09 Lab Results 05/06/20 05/06/20 05/06/20 Range/Units 21:38 21:39 21:39 WBC 11.70 H (4.8-10.8) K/uL RBC 4.57 L (4.7-6.1) M/uL Hgb 13.3 L (14.0-18.0) g/dL Hct 39.9 L (42-52) % MCV 87.3 (80-100) fL MCH 29.1 (25-34) pg MCHC 33.3 (32-36) g/dL RDW Std Deviation 41.4 (36.4-46.3) fL RDW Coeff of Anthony 12.9 (11.5-14.5) % Plt Count 225 (130-400) K/uL MPV 10.9 H (7.4-10.4) fL Immature Gran % (Auto) 1.5 % Neut % (Auto) 80.0 % Lymph % (Auto) 10.4 % [place] % (Auto) 7.9 % Eos % (Auto) 0.1 % Baso % (Auto) 0.1 % Neut # (Auto) 9.36 H (1.4-6.5) K/uL Lymph # (Auto) 1.22 (1.2-3.4) K/uL [place] # (Auto) 0.92 H (0.11-0.59) K/uL Eos # (Auto) 0.01 (0-0.5) K/uL Baso # (Auto) 0.01 (0-0.2) K/uL Immature Gran # (Auto) 0.18 H (0.00-0.02) K/uL PT 10.8 (9.0-12.0) Seconds INR 1.0 (0.9-1.1) APTT 25.8 (21.0-31.0) Seconds PTT Ratio 0.9 D-Dimer (0-500) ug/L FEU Sodium 142 (136-145) mmol/L Potassium 3.8 (3.5-5.1) mmol/L Chloride 110 H (98-107) mmol/L Carbon Dioxide 25 (21-32) mmol/L Anion Gap 7.0 (3-11) BUN 20 H (7-18) mg/dl Creatinine 1.36 (0.6-1.4) mg/dl Est Cr Clr Drug Dosing 69.9 ml/min Est GFR ( Amer) 65.5 Est GFR (Non-Af Amer) 56.6 BUN/Creatinine Ratio 14.6 (10-20) Glucose 150 H (70-99) mg/dl Calcium 8.8 (8.5-10.1) mg/dl Magnesium 2.0 (1.8-2.4) mg/dl Total Bilirubin 0.7 (0.2-1) mg/dl AST 21 (15-37) U/L ALT 27 (12-78) U/L Alkaline Phosphatase 102 (45-117) U/L Troponin I < 0.015 (0-0.045) ng/ml NT-Pro-B Natriuret Pep 94 (0-900) pg/ml Total Protein 7.2 (6.4-8.2) gm/dl Albumin 3.5 (3.4-5.0) gm/dl Globulin 3.7 (2.5-4.0) gm/dl Albumin/Globulin Ratio 0.9 (0.9-2) COVID-19 Eval Order SARS-CoV-2, RNA, NAAT (NEGATIVE) 05/06/20 05/06/20 05/06/20 Range/Units 21:39 22:37 22:37 WBC (4.8-10.8) K/uL RBC (4.7-6.1) M/uL Hgb (14.0-18.0) g/dL Hct (42-52) % MCV (80-100) fL MCH (25-34) pg MCHC (32-36) g/dL RDW Std Deviation (36.4-46.3) fL RDW Coeff of Anthony (11.5-14.5) % Plt Count (130-400) K/uL MPV (7.4-10.4) fL Immature Gran % (Auto) % Neut % (Auto) % Lymph % (Auto) % [place] % (Auto) % Eos % (Auto) % Baso % (Auto) % Neut # (Auto) (1.4-6.5) K/uL Lymph # (Auto) (1.2-3.4) K/uL [place] # (Auto) (0.11-0.59) K/uL Eos # (Auto) (0-0.5) K/uL Baso # (Auto) (0-0.2) K/uL Immature Gran # (Auto) (0.00-0.02) K/uL PT (9.0-12.0) Seconds INR (0.9-1.1) APTT (21.0-31.0) Seconds PTT Ratio D-Dimer 200 (0-500) ug/L FEU Sodium (136-145) mmol/L Potassium (3.5-5.1) mmol/L Chloride (98-107) mmol/L Carbon Dioxide (21-32) mmol/L Anion Gap (3-11) BUN (7-18) mg/dl Creatinine (0.6-1.4) mg/dl Est Cr Clr Drug Dosing ml/min Est GFR ( Amer) Est GFR (Non-Af Amer) BUN/Creatinine Ratio (10-20) Glucose (70-99) mg/dl Calcium (8.5-10.1) mg/dl Magnesium (1.8-2.4) mg/dl Total Bilirubin (0.2-1) mg/dl AST (15-37) U/L ALT (12-78) U/L Alkaline Phosphatase (45-117) U/L Troponin I (0-0.045) ng/ml NT-Pro-B Natriuret Pep (0-900) pg/ml Total Protein (6.4-8.2) gm/dl Albumin (3.4-5.0) gm/dl Globulin (2.5-4.0) gm/dl Albumin/Globulin Ratio (0.9-2) COVID-19 Eval [id number] SARS-CoV-2, RNA, NAAT NEGATIVE (NEGATIVE) 05/06/20 Range/Units 23:03 WBC (4.8-10.8) K/uL RBC (4.7-6.1) M/uL Hgb (14.0-18.0) g/dL Hct (42-52) % MCV (80-100) fL MCH (25-34) pg MCHC (32-36) g/dL RDW Std Deviation (36.4-46.3) fL RDW Coeff of Anthony (11.5-14.5) % Plt Count (130-400) K/uL MPV (7.4-10.4) fL Immature Gran % (Auto) % Neut % (Auto) % Lymph % (Auto) % [place] % (Auto) % Eos % (Auto) % Baso % (Auto) % Neut # (Auto) (1.4-6.5) K/uL Lymph # (Auto) (1.2-3.4) K/uL [place] # (Auto) (0.11-0.59) K/uL Eos # (Auto) (0-0.5) K/uL Baso # (Auto) (0-0.2) K/uL Immature Gran # (Auto) (0.00-0.02) K/uL PT (9.0-12.0) Seconds INR (0.9-1.1) APTT (21.0-31.0) Seconds PTT Ratio D-Dimer (0-500) ug/L FEU Sodium (136-145) mmol/L Potassium (3.5-5.1) mmol/L Chloride (98-107) mmol/L Carbon Dioxide (21-32) mmol/L Anion Gap (3-11) BUN (7-18) mg/dl Creatinine (0.6-1.4) mg/dl Est Cr Clr Drug Dosing ml/min Est GFR ( Amer) Est GFR (Non-Af Amer) BUN/Creatinine Ratio (10-20) Glucose (70-99) mg/dl Calcium (8.5-10.1) mg/dl Magnesium (1.8-2.4) mg/dl Total Bilirubin (0.2-1) mg/dl AST (15-37) U/L ALT (12-78) U/L Alkaline Phosphatase (45-117) U/L Troponin I < 0.015 (0-0.045) ng/ml NT-Pro-B Natriuret Pep (0-900) pg/ml Total Protein (6.4-8.2) gm/dl Albumin (3.4-5.0) gm/dl Globulin (2.5-4.0) gm/dl Albumin/Globulin Ratio (0.9-2) COVID-19 Eval Order SARS-CoV-2, RNA, NAAT (NEGATIVE) Imaging Data Radiologist's Impression: SINGLE VIEW CHEST CLINICAL HISTORY: Dyspnea. FINDINGS: An AP, portable, upright chest radiograph is compared to study dated 05/03/2020. The cardiomediastinal silhouette is unremarkable. The lungs and pleural spaces are clear. No pneumothorax is seen. The bony thorax is grossly intact. IMPRESSION: No active disease in the chest. ACT 112: Negative or not required by law. Electronically signed by: Tahir Montalvo M.D. 05/06/2020 10:15 PM Dictated: 05/06/202213Transcribed: 05/06/202213 ECG Data Attestation: I personally reviewed and interpreted this ECG as follows: Indication: + SOB/dyspnea Rate (beats per minute): 84 Rhythm: + normal sinus ECG Intervals/blocks: + Normal QT-c ECG [place]: + Normal ECG Findings: + PVCs and + LVH (Minimal criteria) Blood Pressure Blood Pressure Findings: Elevated blood pressure Blood Pressure Disposition: further management by hospitalist MARY GRACE Narrative This patient was evaluated and appeared to be in no significant distress. An order for cardiac monitoring was placed and the patient is noted to be in a normal sinus rhythm with PVCs. Patient was given 1 inch of nitroglycerin paste to the anterior chest wall. Laboratory work reveals no evidence of significant abnormality, D-dimer and troponin are negative, BNP is within normal limits. Covid swab was negative. Chest x-ray is clear. I did inform the patient of the findings and attempted to reassure him. The patient stated he is very concerned as this has been going on for 9 days. He states he is seen both the emergency department and his primary care physician and remains dyspneic with exertion. He states he walked a short distance down the [place] to his emergency department room and became very short of breath. Case was discussed with Dr. Peoples of the hospitalist service who will evaluate the patient for further management. Impression & Plan Hypertension, Shortness of breath Discharge Plan Visit Data Chief Complaint: Shortness of Breath/Dyspnea Stated Complaint: SOB ED Provider: Candice Morse Discharge Problem: Hypertension, Shortness of breath Patient Disposition: Admitted As Inpatient Discharge Instructions Interventions: ED Discharge Assessment Last Done: 05/07/20 03:05 Discharge Problem: Hypertension Qualifiers: Hypertension type: essential hypertension Qualified Code(s): I10 - Essential (primary) hypertension
[2020-05-07] MEDS ORDERED: ONDANSETRON INJ 2 MG/ML 2 ML VIAL IV PRN (03:22)
[2020-05-07] MEDS ORDERED: ALBUTEROL HFA 8 GM INHALER INH PRN (03:22)
[2020-05-07] MEDS ORDERED: POLYETHYLENE (MIRALAX) 17 GM PACK PO PRN (03:22)
[2020-05-07] MEDS ORDERED: ACETAMINOPHEN 325 MG TAB PO PRN (03:22)
[2020-05-07] MEDS ORDERED: INFLUENZA VACCINE HIGH DOSE 65+ 0.7 ML SYR IM ONE (03:39)
[2020-05-07] MEDS ORDERED: INFLUENZA ADMINISTRATION CHARGE ONE (03:39)
--- NOTE | 2020-05-07 04:01 | History and Physical Report ---
DATE OF ADMISSION: 05/07/2020 CHIEF COMPLAINT: Shortness of breath. HISTORY OF PRESENT ILLNESS: This is a 60-year-old male with past medical history significant for hyperlipidemia, Gilbert syndrome, prediabetes, hypertension, history of PVCs, constipation, GERD, eosinophilic esophagitis, BPH, chronic lichen simplex, allergic conjunctivitis to both eyes, chronic bilateral low back pain, family history of colon cancer, who presents with ongoing shortness of breath and cough. The patient had some runny nose about 9 days ago and in the last 3-4 days he developed shortness of breath and cough. Activities are making him short of breath and sometimes at rest too. He is having some headache. Denies any blurred visions. No sore throat. He says his sense of smell is somewhat down, but he is tasting okay. Appetite is okay. Has some body aches. Currently afebrile. No chest pain. No nausea, no vomiting, no abdominal pain. Has diarrhea on and off, that is his chronic problem. Has difficulty urinating, that is his chronic issue. No swelling in the legs, no rash. Currently resting comfortably and hemodynamically stable. The patient was in the ER a couple of days ago. At that time, his COVID test was negative. On 05/03/2020, the COVID status was negative. His COVID test was again done in [facility] on 05/04/2020, which is still in process and today it was done in the ER again, it was again negative. The patient is somewhat anxious, because of his ongoing symptoms. So he is getting admitted to the hospital for observation. ALLERGIES: MILK, NUTS. PAST MEDICAL HISTORY: As mentioned above. PAST SURGICAL HISTORY: Colonoscopy with biopsy, cystoscopy, EGDs, needle punch biopsy of prostate, TURP, removal of ureteral stone, cholecystectomy, tonsillectomy, adenoidectomy, sinus surgery, total hip replacement. MEDICATIONS: The patient is on albuterol 2 puffs inhalation q. 4 hours p.r.n., amlodipine 5 mg p.o. a.m., aspirin 81 mg p.o. a.m., atorvastatin 40 mg p.o. a.m., lisinopril 20 mg p.o. b.i.d., metoprolol tartrate 62.5 mg p.o. b.i.d., multivitamin 1 tablet p.o. a.m., omeprazole 40 mg p.o. a.m. FAMILY HISTORY: Significant for mother had chronic rhinitis; father has heart disorder; sister has breast cancer; brother has colon cancer. SOCIAL HISTORY: . No smoking, no alcohol, no drug use. REVIEW OF SYSTEMS: As per HPI. Rest of the review of systems negative. PHYSICAL EXAMINATION: GENERAL: The patient is of moderate build, not in acute distress. VITAL SIGNS: Temperature 36.4, pulse 65, respiratory rate 24, blood pressure 135/81, oxygen 95% on room air. HEENT: Pupils equal, round, and reactive to light. Oral mucosa moist. NECK: No JVD, no neck masses. CARDIOVASCULAR: S1, S2 heard. Regular rate and rhythm. No murmur, no gallop. RESPIRATORY SYSTEM: Normal AP diameter. No accessory muscle use. No wheezing, no crackles. ABDOMEN: Soft, bowel sounds present, nontender. No distention. CENTRAL NERVOUS SYSTEM: Cranial nerves II-XII grossly intact. Nonfocal. EXTREMITIES: No edema, no erythema. LABORATORY DATA: WBC 11.7, hemoglobin 13.3, hematocrit 39.9, platelets 225. PT 11.8, INR 1, APTT 25.8. D-dimer 200. Sodium 142, potassium 3.8, chloride 110, bicarbonate 25, BUN 20, creatinine 1.36, serum glucose 150, calcium 8.8, magnesium 2, total bilirubin 0.7, AST 21, ALT 27, alkaline phosphatase 102, troponin I less than 0.015. BNP 94. COVID-19 RNA test negative. IMAGING: Chest x-ray, no acute findings. EKG: Sinus rhythm with occasional PVCs at a rate of 84, no acute ST changes seen. ASSESSMENT AND PLAN: This is a 60-year-old male who presents with ongoing shortness of breath. 1. Shortness of breath going on for the last few days with cough. The patient was concerned about COVID. He had COVID test on 05/03/2020 in the ER, which was negative and was discharged on three days of prednisone. He saw PCP on 05/04/2020 and Kirk also did a COVID test, results are pending. He came back again with ongoing symptoms and COVID test is still negative in the ER and his labs are unremarkable and chest x-ray is unremarkable. We are going to observe in the hospital. Will continue his home albuterol p.r.n. Placed him on Xopenex p.r.n. Troponin is negative. D-dimer is negative. BNP is negative. 2. History of hypertension: Continue amlodipine, lisinopril, metoprolol. Will monitor his blood pressure. 3. Gastroesophageal reflux disease: Continue omeprazole. 4. Hyperlipidemia: Continue statin. 5. Prediabetes: Placed him on diabetic diet. Follow hemoglobin A1c levels. 6. Deep venous thrombosis prophylaxis, sequential compression devices. DISPOSITION: Closely observe in medical floor. Expect to discharge home and follow with family doctor. ALAN
[2020-05-07] MEDS: LEVALBUTEROL 1.25MG/0.5ML NEB NEB PRN ×2 (04:34→17:28)
[2020-05-07 06:52] LABS: Appearance Urine Clear (Clear); Bilirubin Urine Negative (Negative); Blood Urine Negative (Negative); Color Urine Yellow; Glucose Urine UA Negative (Negative); Ketones Urine Negative (Negative); Leukocyte Esterase Urine Negative (Negative); Nitrite Urine Negative (Negative); Protein Urine Negative (Negative); Specific Gravity Urine 1.023 (1.000-1.030); Urobilinogen Urine Negative (Negative); pH Urine 5.5 (4.5-7.5)
[2020-05-07 07:27] LABS: Basophils # (auto) 0.02 K/uL (0-0.2); Basophils % (auto) 0.2 %; Eosinophils # (auto) 0.06 K/uL (0-0.5); Eosinophils % (auto) 0.6 %; Hemoglobin 12.3 g/dL (14.0-18.0); Immature Granulocytes % (auto) 0.9 %; Lymphocytes # (auto) 2.06 K/uL (1.2-3.4); Lymphocytes % (auto) 19.5 %; Mean Corpuscular Hemoglobin 29.2 pg (25-34); Mean Corpuscular Hgb Conc 33.2 g/dL (32-36); Mean Corpuscular Volume 87.9 fL (80-100); Mean Platelet Volume 10.8 fL (7.4-10.4); Monocytes # (auto) 1.13 K/uL (0.11-0.59); Monocytes % (auto) 10.7 %; Neutrophils # (auto) 7.21 K/uL (1.4-6.5); Neutrophils % (auto) 68.1 %; Platelet Count 210 K/uL (130-400); RDW Coefficient of Variation 12.9 % (11.5-14.5); RDW Standard Deviation 41.6 fL (36.4-46.3); Red Blood Count 4.21 M/uL (4.7-6.1); White Blood Count 10.58 K/uL (4.8-10.8)
[2020-05-07 07:41] LABS: BUN Creatinine Ratio 14.8 (10-20); Calcium 8.5 mg/dl (8.5-10.1); Creatinine Clr Calc Pharmacy 76.2 ml/min; Est GFR (African American) 77.8; Est GFR (Non-African American) 67.1; Potassium 3.3 mmol/L (3.5-5.1)
--- NOTE | 2020-05-07 08:01 | Electrocardiogram Report ---
Test Reason : Blood Pressure : / mmHG Vent. Rate : 084 BPM Atrial Rate : 084 BPM P-R Int : 170 ms QRS Dur : 090 ms QT Int : 354 ms P-R-T Axes : 054 054 011 degrees QTc Int : 418 ms Sinus rhythm with occasional Premature ventricular complexes Minimal voltage criteria for LVH, may be normal variant Borderline ECG When compared with ECG of 03-MAY-2020 11:42, Premature ventricular complexes are now Present Confirmed by Antolin Mccrary ([id number]) on 05/07/2020 8:00:35 AM Referred By: Meryl Jefferson Confirmed By:Antolin Mccrary
[2020-05-07] MEDS: lisinopril 20 MG TAB PO SCH ×2 (08:18→20:42)
[2020-05-07] MEDS: amLODIPine BESYLATE 5 MG TAB PO SCH (08:18)
[2020-05-07] MEDS: MULTIVITAMIN TAB PO SCH (08:18)
[2020-05-07] MEDS: ASPIRIN 81 MG ECTAB PO SCH (08:18)
[2020-05-07] MEDS: METOPROLOL TARTRATE 25 MG TAB PO SCH ×2 (08:18→20:42)
[2020-05-07] MEDS: ATORVASTATIN 40 MG TAB PO SCH (08:18)
[2020-05-07] MEDS: PANTOprazole 40 MG TAB PO SCH (08:18)
[2020-05-07] MEDS: METOPROLOL TARTRATE 50 MG TAB PO SCH ×2 (08:18→20:41)
--- NOTE | 2020-05-07 12:22 | Communication Note ---
Date of Service: May 07, 2020 Patient seen and examined this morning History as documented in HPI this AM Patient has no new complaints except for dry cough occasionally associated with pleuritic chest pain and SOB. Also reports headache. No abd pain/nausea/vomiting Reports chronic urinary problems (feeling of incomplete emptying) Exam notable for General: Well nourished, well hydrated , average body habitus, no acute distress and not ill appearing Eyes: PERRL, conjunctivae normal, not pale, anicteric sclerae, EOM intact bilaterally ENMT: External ear and nose normal, oropharynx normal Neck: Normal visual inspection, no tracheal deviation, no swelling noted Respiratory: Normal respiratory effort, no respiratory distress, Good air entry, mild expiratory wheeze Cardiovascular: Pulse is RRR S1 S2. No pedal edema Chest: Normal inspection of chest. No chest wall tenderness Gastrointestinal (Abdomen): Abdomen is not distended, soft, non-tender to palpa tion, no guarding, no palpable hepatosplenomegaly, normal bowel sounds Musculoskeletal: No cyanosis or clubbing, all extremities motor strength 5/5 Neurologic: Alert and oriented x 3, No focal weakness, sensation grossly intact Psychiatric: Alert and oriented x 3, euthymic affect, no depressed affect XR chest did not show any acute findings -Acute bronchitis Likely viral in etiology considering onset about 9days ago with URI symptoms (rhinorhea, congestion, etc) COVID 19 tests negative so far Will follow up outstanding COVID result reportedly sent by PCP Continue symptomatic management for cough, headache Continue prn nebs I agree with other plans documented in H/P from this morning by Dr Peoples
[2020-05-07] MEDS: guaiFENesin SUGAR FREE 200 MG/10 ML UDC PO PRN ×2 (17:15→23:44)
[2020-05-07] MEDS ORDERED: POTASSIUM CHLORIDE PWD 20 MEQ PACK PO ONE (18:30)
[2020-05-07] MEDS ORDERED: KETOROLAC TROMETHAMINE 15 MG/ML VIAL IV PRN (19:58)
[2020-05-08 06:23] LABS: Hematocrit (blood only) 40.9 % (42-52); Hemoglobin 13.4 g/dL (14.0-18.0); Mean Corpuscular Hemoglobin 29.1 pg (25-34); Mean Corpuscular Hgb Conc 32.8 g/dL (32-36); Mean Corpuscular Volume 88.7 fL (80-100); Mean Platelet Volume 10.4 fL (7.4-10.4); Platelet Count 215 K/uL (130-400); RDW Coefficient of Variation 12.9 % (11.5-14.5); RDW Standard Deviation 41.6 fL (36.4-46.3); Red Blood Count 4.61 M/uL (4.7-6.1); White Blood Count 7.19 K/uL (4.8-10.8)
[2020-05-08 07:03] LABS: BUN Creatinine Ratio 14.5 (10-20); Calcium 8.6 mg/dl (8.5-10.1); Creatinine Clr Calc Pharmacy 72.5 ml/min; Est GFR (African American) 73.3; Est GFR (Non-African American) 63.2; Potassium 3.8 mmol/L (3.5-5.1)
--- NOTE | 2020-05-08 08:22 | Electrocardiogram Report ---
Test Reason : Blood Pressure : / mmHG Vent. Rate : 066 BPM Atrial Rate : 066 BPM P-R Int : 170 ms QRS Dur : 090 ms QT Int : 388 ms P-R-T Axes : 049 048 032 degrees QTc Int : 406 ms Normal sinus rhythm Normal ECG When compared with ECG of 06-MAY-2020 21:31, Premature ventricular complexes are no longer Present Confirmed by Antolin Mccrary ([id number]) on 05/08/2020 8:22:27 AM Referred By: Meryl Jefferson Confirmed By:Antolin Mccrary
[2020-05-08] MEDS: METOPROLOL TARTRATE 25 MG TAB PO SCH (08:55)
[2020-05-08] MEDS: METOPROLOL TARTRATE 50 MG TAB PO SCH (08:57)
[2020-05-08] MEDS: ATORVASTATIN 40 MG TAB PO SCH (08:57)
[2020-05-08] MEDS: amLODIPine BESYLATE 5 MG TAB PO SCH (08:57)
[2020-05-08] MEDS: ASPIRIN 81 MG ECTAB PO SCH (08:58)
[2020-05-08] MEDS: MULTIVITAMIN TAB PO SCH (08:58)
[2020-05-08] MEDS: lisinopril 20 MG TAB PO SCH (08:58)
[2020-05-08] MEDS: PANTOprazole 40 MG TAB PO SCH (09:02)
--- NOTE | 2020-05-08 09:11 | Discharge Summary ---
Date of Service May 08, 2020 Admission HPI Per Admitting Provider 60-year-old male with past medical history significant for hyperlipidemia, Gilbert syndrome, prediabetes, hypertension, history of PVCs, constipation, GERD, eosinophilic esophagitis, BPH, chronic lichen simplex, allergic conjunctivitis to both eyes, chronic bilateral low back pain, family history of colon cancer, who presents with ongoing shortness of breath and cough. The patient had some runny nose about 9 days ago and in the last 3-4 days he developed shortness of breath and cough. Activities are making him short of breath and sometimes at rest too. He is having some headache. Denies any blurred visions. No sore throat. He says his sense of smell is somewhat down, but he is tasting okay. Appetite is okay. Has some body aches. Currently afebrile. No chest pain. No nausea, no vomiting, no abdominal pain. Has diarrhea on and off, that is his chronic problem. Has difficulty urinating, that is his chronic issue. No swelling in the legs, no rash. Currently resting comfortably and hemodynamically stable. The patient was in the ER a couple of days ago. At that time, his COVID test was negative. On 05/03/2020, the COVID status was negative. His COVID test was again done in [facility] on 05/04/2020, which is still in process and today it was done in the ER again, it was again negative. The patient is somewhat anxious, because of his ongoing symptoms. So he is getting admitted to the hospital for observation Admission Exam Per Admitting Provider GENERAL: The patient is of moderate build, not in acute distress. VITAL SIGNS: Temperature 36.4, pulse 65, respiratory rate 24, blood pressure 135/81, oxygen 95% on room air. HEENT: Pupils equal, round, and reactive to light. Oral mucosa moist. NECK: No JVD, no neck masses. CARDIOVASCULAR: S1, S2 heard. Regular rate and rhythm. No murmur, no gallop. RESPIRATORY SYSTEM: Normal AP diameter. No accessory muscle use. No wheezing, no crackles. ABDOMEN: Soft, bowel sounds present, nontender. No distention. CENTRAL NERVOUS SYSTEM: Cranial nerves II-XII grossly intact. Nonfocal. EXTREMITIES: No edema, no erythema. Principal Diagnosis Acute bronchitis Discharge Exam Constitutional + well hydrated; no acute distress Eyes PERRL, conjunctivae normal, anicteric sclerae ENMT external ear and nose normal, oropharynx normal Respiratory normal respiratory effort, lungs clear to auscultation Cardiovascular RRR, no murmur, no edema Gastrointestinal (Abdomen) normal bowel sounds, soft, nontender, no hepatosplenomegaly Musculoskeletal no cyanosis or clubbing, extremities motor strength 5/5 Neurologic PERRL, EOMI, accommodation nl, no face palsy, no dysarthria Psychiatric A+Ox3, euthymic affect Discharge Data Allergies Allergy/AdvReac Type Severity Reaction Status Date / Time milk Allergy Intermediate lactose Verified 05/07/20 00:12 intolerant No Known Drug Allergies Allergy Unknown . Verified 05/07/20 00:12 nut - unspecified AdvReac Intermediate GI SYMPTOMS Verified 05/07/20 00:12 Consultations 05/07/20 00:03 ED Decision to Admit Stat 05/07/20 03:22 Consult Case Management - Discharge Planning Routine Hospital Course (1) Acute bronchitis: (2) Shortness of breath: Patient presented to the hospital with persistent respiratory symptoms. Reported URI symptoms that started 9 days ago with rhinorrhea, congestion and then progressed to cough and shortness of breath. Cough is mostly dry. Rhinorrhea and congestion resolved. Patient had a COVID test on 05/03/20 which was negative Repeat COVID test on admission was also negative COVID test also performed by PCP on 05/04/20 was negative on result review on [facility] CXR did not show any infiltrates or acute disease Likely viral Patient treated symptomatically with medications and nebs. Symptoms improving. Patient reports he still has cough med and inhaler at home Advised to continue use at home (3) Hypertension: Continue home antihypertensives Total Time Total Time Spent Total Time Spent (In Minutes): 40 Total Time Includes: Examination of the Patient, Discharge Planning and Medication Reconciliation Discharge Plan Discharge Items Patient Disposition: Home - Self-Care Reason For Visit: Cough Discharge Diagnosis: Acute bronchitis Activity: Resume your previous activity Non-emergency contact: Primary Care Provider Call non-emergency contact if: you have any medication questions and your symptoms worsen Follow-up/Referrals: Meryl Jefferson MD [Primary Care Provider] - Diet: Heart Healthy Addtl Attending Provider Instructions: Mr Dinh. You came to the hospital complaining of worsening cough and some shortness of breath. You were evaluated and managed for acute bronchitis. Your COVID test was negative Please continue to use the cough medicine and inhaler you have at home. Please follow up with your Primary Doctor. It was a pleasure taking care of you. Pending Studies at Discharge: No Stand-Alone Forms: My [facility], Smoking Cessation Medications and DC Order Prescriptions: Continued multivitamin Tablet 1 tab PO QAM RF: 0 atorvastatin 40 mg tablet 40 mg PO QAM RF: 0 lisinopril 20 mg tablet 20 mg PO BID RF: 0 amlodipine 5 mg tablet 5 mg PO QAM RF: 0 omeprazole 40 mg capsule,delayed release(DR/EC) 40 mg PO QAM RF: 0 aspirin 81 mg Tablet,Delayed Release (Dr/Ec) 81 mg PO QAM RF: 0 metoprolol tartrate 50 mg tablet 50 mg PO BID RF: 0 albuterol sulfate 90 mcg/actuation HFA aerosol inhaler 2 puff INHALATION Q4H PRN (Reason: Shortness Of Breath) RF: 0 metoprolol tartrate 25 mg tablet 12.5 mg PO BID RF: 0 Discharge Orders: Discharge Order (Routine); Ordered 05/08/20 Ordered By: Ailyn Lanier Admission Data Admit Date/Time: 05/07/20 02:20 Attending Provider: Ailyn Lanier I. Admit Provider: Jose Peoples Primary Care Provider: Meryl Jefferson Other Providers: Jose Peoples Other Interventions: Discharge Summary Assessment (RN) Last Done: 05/08/20 09:12
== END 2020-05-08 12:39 | disposition home or self-care (01) ==
LOC: 3W 20:49 → ED 20:49 → 3W 05-07 03:05